=== PATIENT | male | born 2000 | race Two or more races ===

== ENCOUNTER 2020-09-16 10:35 | Emergency (ER) | payer MEDICAID, OTHER ==
[~2020-09-16] VITALS: Ht 165.1 cm; Wt 50.8 kg
--- NOTE | 2020-09-16 11:03 | NUR ---
CCOLLAR IN TRIAGE
--- NOTE | 2020-09-16 11:33 | NUR ---
EDGE INKER NOTE: PT TO ROOM 21 VIA WHEELCHAIR, C COLLAR IN PLACE.
--- NOTE | 2020-09-16 12:44 | NUR ---
PT BACK FROM IMAGING AND TALKING ON PHONE. VS UPDATED AND WNL.
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
--- NOTE | 2020-09-16 13:34 | NUR ---
REPEAT EKG DONE. PT. IS RESTING WITHOUT CONCERNS AND REMAIN MONITORED. VSS.
[2020-09-16 13:37] VITALS: BP 125/74
--- NOTE | 2020-09-16 13:37 | NUR ---
PT. WAS TAKEN TO RADIOLOGY.
== END 2020-09-16 12:28 ==
LOC: ED 12:27
DX: S16.1XXA Strain of muscle, fascia and tendon at neck level, initial encounter (principal); S33.5XXA Sprain of ligaments of lumbar spine, initial encounter; R51.9 Headache, unspecified; V43.53XA Car driver injured in collision with pick-up truck in traffic accident, initial encounter; Y93.89 Activity, other specified; Y92.488 Other paved roadways as the place of occurrence of the external cause; Y99.8 Other external cause status
CPT/HCPCS: 72072; 72110; 72125; 99284